=== PATIENT | male | born 1990 | race Caucasian/White ===

== ENCOUNTER 2017-05-11 12:38 | Emergency (ER) | payer SELFPAY ==
[~2017-05-11] VITALS: Ht 177.8 cm; Wt 79.5 kg
[2017-05-11] MEDS ORDERED: ALBU8HFA IH (12:46)
[2017-05-11 14:42] VITALS: BP 127/65
[2017-05-11] MEDS ORDERED: GuaiFENesin/D-METHORPHAN [SUGAR-FREE] 200-20MG/10 ML SYRUP UDCUP PO ONE (15:30)
[2017-05-11] MEDS ORDERED: ACETAMINOPHEN 325 MG TABLET PO ONE (15:30)
== END 2017-05-11 16:03 | disposition home or self-care (01) ==
LOC: EMS 12:44
DX: J06.9 Acute upper respiratory infection, unspecified (principal); J45.909 Unspecified asthma, uncomplicated; Z88.0 Allergy status to penicillin
CPT/HCPCS: 99283